=== PATIENT | male | born 1955 | race Caucasian/White ===

== ENCOUNTER 2023-08-18 16:46 | Inpatient (IN) | payer OTHER ==
[2023-08-18] VITALS (16 sets, daily range): BP systolic 102–126; BP diastolic 64–87
[~2023-08-18] VITALS: Ht 177.8 cm; Wt 100.8 kg
[~2023-08-18 16:46] MED LIST: ELIQUIS5 M2 PO; LOSA50 PO; OMEPRAZOLE MAGN20 MG PO; Simvastatin10 MG PO; Toprol Xl25 MG PO; VENL75ER PO; Zofran Odt4 MG SL
[2023-08-18] MEDS ORDERED: dilTIAZem HCL 125 MG in Dextrose 5% 100 ML IV SCH (17:20)
[2023-08-18] MEDS ORDERED: Diltiazem HCl 5 MG / ML 5ML Vial IV ONE (17:20)
[2023-08-18 17:51] LABS: BASOPHILS ABSOLUTE AUTO 0.06 K/mm3 (0.00-0.23); BASOPHILS PERCENT AUTO 1 % (0-2); EOSINOPHILS PERCENT AUTO 1 % (0-6); Hematocrit 34.3 % (37.0-53.0); Hemoglobin 10.8 g/dL (13.5-17.5); IMMATURE GRAN ABSOLUTE AUTO 0.04 K/mm3 (0.00-0.10); IMMATURE GRAN PERCENT AUTO 0 % (0-1); LYMPHOCYTES ABSOLUTE AUTO 1.27 K/mm3 (0.84-5.20); LYMPHOCYTES PERCENT AUTO 14 % (21-46); MONOCYTES ABSOLUTE AUTO 0.83 K/mm3 (0.16-1.47); MONOCYTES PERCENT AUTO 9 % (4-13); Mean Corpuscular HGB Conc 31.5 g/dL (31.5-36.5); Mean Corpuscular Volume 89 fL (80-100); Mean Platelet Volume 9.8 fL (9.1-12.4); NEUTROPHILS ABSOLUTE AUTO 6.68 K/mm3 (1.96-9.15); NEUTROPHILS PERCENT AUTO 75 % (41-73); Platelet Count 224 K/mm3 (150-400); RDW Coefficient Variation 14.4 % (11.7-14.2); RDW Standard Deviation 46.4 fL (35.1-46.3); Red Blood Cell Count 3.86 M/mm3 (4.30-5.90); White Blood Cell Count 8.98 K/mm3 (4.00-11.30)
[2023-08-18 18:17] LABS: Bun/Creatinine Ratio 10.3 (12.0-20.0); Calcium, Blood 8.6 mg/dL (8.5-10.1); Creatinine, Blood 1.26 mg/dL (0.60-1.20); Potassium, Blood 3.8 mmol/L (3.5-5.5)
[2023-08-18] MEDS ORDERED: Metoprolol Tartrate 25 MG Tab PO SCH (19:00)
[2023-08-18] MEDS ORDERED: Apixaban 5 MG Tab PO SCH (21:00)
[2023-08-18 21:27] LABS: U Amphetamine Screen Not Detected; U Barbituate Screen Not Detected; U Benzodiazapine Screen Not Detected; U Buprenorphine Screen Not Detected; U Cannabinoids Screen Not Detected; U Cocaine Screen Not Detected; U Methadone Screen Not Detected; U Methamphetamine Screen Not Detected; U Opiates Screen Not Detected; U Oxycodone Screen Not Detected; U Phencyclidine Screen Not Detected
[2023-08-18] MEDS ORDERED: Nicotine Polacrilex 2 MG Gum PO PRN (23:05)
[2023-08-18] MEDS ORDERED: Metoprolol Tartrate 1 MG/ML 5 ML VIAL IV PRN (23:05)
[2023-08-18] MEDS ORDERED: Temazepam 15 MG Cap PO ONE (23:10)
--- NOTE | 2023-08-18 23:17 | NUR ---
PT TRANSFER PT TRANSFERRED TO PCU VIA ER BED, PT TRANSITIONED TO PCU BED INDEPENDENTLY. PT ALERT AND ORIENTED X 4, ANSWERS QUESTIONS APPROPRIATELY, FOLLOWS DIRECTION WHEN PROMPTED AND IS ABLE TO MAKE NEEDS KNOWN. PT MOVES ALL EXTREMITIES EQUALLY BILATERALLY. PT AMBULATES IN THE ROOM WITH SBA TO MANAGE LINES. PT HR 80-130'S AFIB, HR INCREASES WITH EXERTION. PT TRANSFERRED TO PCU ON DILTIAZEM DRIP AT 2.5MG/HR, DC'D PER HOSPITALIST, TRANSOITIONED TO PO MEDICATION, SEE EMAR FOR MORE INFORMATION. MAP >65, SBP 100-120'S. PT ON RA, OXYGEN SATURATION >95%. ABDOMEN ROUND, NONTENDER, BOWEL TONES ACTIVE IN ALL FOUR QUADRANTS. PT AMBULATES TO BEDSDIE TOILET TO VOID. PIV IN PLACE TO RAC SL. BED IN LOWEST POSITION, CALL LIGHT WITHIN REACH, CARE CONTINUES.
[2023-08-19] VITALS (11 sets, daily range): BP systolic 101–131; BP diastolic 13–90
--- NOTE | 2023-08-19 07:34 | NUR ---
SHIFT SUMMARY PT RESTING IN BED, ALERT AND ORIENTED X4. PT ANSWERS QUESTIONS APPROPRIATELY, FOLLOWS DIRECTION WHEN PROMPTED AND IS ABLE TO MAKE HIS NEEDS KNOWN. PT MOVES AL LEXTREMITIES EQUALY BILATERALLY. HR 70-140'S AFIB, MAP >65. PT HR 70-90'S WHILE AT REST, HR INCREASES WITH EXERTION. PT DENIES CP OR PRESSURE. PT ON RA, OXYGEN SATURATION >95%. ABDOMEN SOFT, BOWEL TONES ACTIVE IN ALL FOUR QUADRANTS. PT USES URINAL TO VOID. PIV IN PLACE TO RAC SL. BED IN LOWEST POSITION, CALL LIGHT WITHIN REACH, CARE CONTINUES.
[2023-08-19] MEDS ORDERED: Thiamine HCl 100 MG Tab PO SCH (09:00)
[2023-08-19] MEDS ORDERED: Multivitamins 1 Tab PO SCH (09:00)
[2023-08-19] MEDS ORDERED: Folic Acid 1 MG TAB PO SCH (09:00)
[2023-08-19] MEDS ORDERED: Metoprolol Tartrate 50 MG Tab PO SCH ×3 (09:00→21:00)
[2023-08-19] MEDS ORDERED: Metoprolol Tartrate 50 MG Tab PO ONE (13:00)
[2023-08-19] MEDS ORDERED: Gabapentin 300 MG Cap PO SCH (15:00)
--- NOTE | 2023-08-19 16:55 | NUR ---
PT SUMMARY; PT REMAINED ALERT AND ORIENTED T/O SHIFT INDEPENDENT IN THE ROOM. PT HRR STILL TACHS UP TO 130-140'S, PT WAS GIVEN METOPROLOL IV PUSH THIS MORNING ALSO STARTED ON PO METOPROLOL TARTRATE STARTED AT 50 MG NOW UP TO 150MG BID. SBP 115-130'S, SATS ABOVE 95% ON RA, AFEBRILE. PT STILL C/O SOB WITH EXERTION. MD AWARE. ECHO WAS DONE TODAY RESULT WAS DISCUSSED BY MD. PT AMBULATED AROUND THE UNIT 3 TIMES WITH THE SAME COMPLAINT SOB. PT ALSO STARTED ON GABAPENTIN FOR POSSIBLE W/D SYMPTOMS. PT KEEPS DENYING HE WOULDNT GO INTO WITHDRAWALS AND HAVE NEVER BEEN. PT WAS EDUCATED ABOUT ETOH SYMPTOMS. PT EATING AND DRINKNG WITH NO ISSUES, NO OTHER ISSUES REPORTED FOR THE SHIFT, WILL REPORT TO ONCOMING SHIFT
[2023-08-19] MEDS ORDERED: Atorvastatin 10 MG Tab PO SCH (21:00)
[2023-08-20] VITALS (8 sets, daily range): BP systolic 93–126; BP diastolic 62–99
--- NOTE | 2023-08-20 00:25 | NUR ---
PT IS ALERT AND ORIENTED X 4, COOPERATIVE WITH CARE AND ABLE TO MAKE NEEDS KNOWN. HE IS ON RA AND MAINTAINING 02 SATURATION ABOVE 92%, HE DENIES SOB AT THIS TIME. HR AFIB 80'S-130'S. 150MG METOPROLOL GIVEN PER EMAR AT BEGINNING OF SHIFT, RATE HAS LOWERED TO 80'S-90'S SINCE THEN. 130'S AT BEGINNING OF SHIFT. PT DENIES CHEST PAIN/PRESSURE. PT AMBULATORY AND INDEPENDENT IN ROOM AND TOLERATES WELL. PT RESTING IN BED AND CALL LIGHT WITHIN REACH.
[2023-08-20 06:22] LABS: Bun/Creatinine Ratio 13.1 (12.0-20.0); Calcium, Blood 8.5 mg/dL (8.5-10.1); Creatinine, Blood 1.22 mg/dL (0.60-1.20); Potassium, Blood 3.9 mmol/L (3.5-5.5)
--- NOTE | 2023-08-20 06:54 | NUR ---
PT'S HR 70'S-90'S AT REST AND CAN GO UP TO 130'S W/EXERTION. PT C/O SOB & WEAKNESS WITH EXERTION. HE DENIES CHEST PAIN/PRESSURE. PT IN GOOD SPIRITS THIS MORNING. CALL LIGHT WITHIN REACH.
[2023-08-20] MEDS ORDERED: Omeprazole 20 MG CapCR PO SCH (09:00)
[2023-08-20] MEDS ORDERED: dilTIAZem HCL 30 MG TAB PO SCH (10:00)
--- NOTE | 2023-08-20 14:52 | NUR ---
LATE NOTE 1020 PT WENT FOR A WALK AROUND PCU WITH ASSISTANCE OF FIRE TENDER. PT HR TACHED UP TO 130-150'S WITH AMBULATION, PT ABLE TO GO ROUHGLY 100 FT BEFORE "FEELING SHORT OF BREATH." PT BACK TO ROOM AT ROUGHLY 1030. HR DOWN TO 80-90'S WHILE AT REST. PT STATED "I STILL FEEL LIKE I DID WHEN I CME IN."
--- NOTE | 2023-08-20 16:07 | NUR ---
PT AMBULATED TO HALLWAY. CINTHIA CHOU ACCOMPANIED PT FOR A WALK AROUND PCU. PT HR AVERAGED 110-120'S FOR PT'S TRIP AROUND PCU. PT AMBULATED FOR ROUGHLY 300 FT. PT BACK TO ROOM AND REPORTED SLIGHT SOB, "NOT BAD." PT HR TOUCHED 130'S WHILE GETTING BACK INTO BED.
[2023-08-20] MEDS ORDERED: dilTIAZem HCL 60 MG TAB PO SCH ×4 (16:30→21:00)
--- NOTE | 2023-08-20 18:26 | NUR ---
THIS RN TO PT ROOM TO GIVE EVENING MEDS AT ROUGHLY 1750. PT HR NOTED TO BE IN THE 60'S AND PT HAD RECIEVED AN INCREASED DOSE OF DILTIAZEM AT 1616. THIS RN TOOK PT'S BP AT 1758, BP 93/70. RESIDENT MD NOTIFIED THAT HR HAS DECREASED TO THE 60'S AND BP ALSO SOFT IN THE 90'S AFTER RECIEVING DOSE. RESIDENT NOTIFIED THAT PT BP PRIOR TPO RECIEVING INCREASED DOSE WAS 105/75 WITH THE HR AT 84. VS PARAMETERS GOOD TO GIVE MEDICATIONS PER ORDER. PT REPORTED NO SYMPTOMS AT THIS TIME. RESIDENT TO CHANGE ORDER OF CARDIZEM. MOMENTS LATER, ABOUT 5 MINUTES, THIS RN OBSERVED PT'S HR IN THE HIGH 50'S AND BRIEFLY TOUCHED 39. THIS RN TO PT'S TO ASSESS. PT REPORTED "I FEEL KIND OF FUNNY. MY HANDS ALL OF A SUDDEN GOT COLD." THIS RN CONNECTED PT TO AUTOMATIC BP CYCLES Q15 AND INFORMED PT TO CONTACT STAFF IF HE HAS ANY NEW OR WORSENING SYMPTOMS. PT INSTRUCTED NOT TO GET UP WITHOUT ASSISTANCE. DR GIBSON NOTIFIED OF ACUTE CHANGE AND PREVIOUS EVENT. NOTIFED THAT PT SYMPTOMATIC AT THIS TIME. THIS RN INSTRUCTED TO HOLD BETA BLOCKERS AND STICK WITH THE NEW DOSE OF CARDIZEM THAT THE RESIDENTS HAVE ORDERED. WELL SURVEYING ENGINEER NOTIFIED.
--- NOTE | 2023-08-20 18:55 | NUR ---
SHIFT SUMMARY PT A/OX4 AND COOPERATIVE OF CARE. PT ABLE TO EXPRESS NEEDS. PT RESTLESS IN ROOM AND WOULD WANDER OUT TO HALLWAY, MULTIPLE WALKS AROUND UNIT WITH STAFF. PT HR TACHED UP TO 110-130'S DURING AMBULATION AND PT REPORTED SOB. NEW ORDERS FOR MEDS, PT HR DOWN TO 50'S, SEE THIS RN PREVIOUS NOTES. SATS STABLE IN THE 90'S ON RA. NO RPEORT OF CHEST PAIN/PRESSURE THROUGHOUT SHIFT. PT HAS HAD TO VERY BRIEF MOMENTS OF HR TOUCHING 39 AND 40'S AFTER HR CAME DOWN TO 50'S. PT INSTRUCTED TO CONTACT STAFF RIGHT AWAY IF HE HAS ANY DIFFERENT SYMPTOMS OR SYMPTOMS WORSEN. PT ALS0 INSTRUCTED NOT TO GET UP ON HIS OWN, PT VERBALIZED UNDERSTANDING.
[2023-08-20] MEDS ORDERED: LORazepam 2 MG/ML 1ML Injection IV PRN ×2 (20:00→20:05)
[2023-08-20] MEDS ORDERED: ChlordiazePOXIDE 25 MG Cap PO PRN ×2 (20:00)
[2023-08-20] MEDS ORDERED: Metoprolol Tartrate 50 MG Tab PO SCH ×2 (21:00)
--- NOTE | 2023-08-20 21:29 | NUR ---
1999- PROVIDER SARABJIT CALLED AND INFORMED OF PT'S CHEST PAIN EPISODE. PT ALERT THIS RN OF CHEST PAIN THAT WAS SHARP AND SUBSTERNAL. PT REPORTS PAIN LASTED A MINUTE. PROVIDER ORDERED LABS AND TROPOINS. PROVIDER INFORMED OF PT'S ALCOHOL USE HISTORY AND ORDERED CIWA PROTOCOL MEDS. PT HAS HAD 0 CIWAS.
[2023-08-20] MEDS ORDERED: Melatonin 5 MG Tablet PO SCH (22:00)
[2023-08-21 00:17] VITALS: BP 91/68
[2023-08-21 05:57] VITALS: BP 117/80
--- NOTE | 2023-08-21 06:37 | NUR ---
SUMMARY- PT HAD A SHORT EPISODE OF CX PAIN. PROVIDER CALLED AND TROPS ORDERED. TROPS RESULTS WERE UNREMARKABLE. CIWA PROTOCOL WAS ORDERED. CIWAS HAVE BEEN NEGATIVE. PT HRT RATE THROUGHTHE NIGHT WAS IN 69-72. BP'S WERE IN 90'S SP MOST OF NIGHT. PM CARDIZEM WAS HELD. THIS AM HRT RATES IN 80'S AND SBP IN 100'S. PT REPORTS SLEEPING AND DENIES CX PAIN DURING THE NIGHT. PT VOIDED VIA URINAL. PT CURRENTLY AWAKE AND COMFORTABLE. CALL LIGHT IN REACH.
[2023-08-21 06:58] LABS: Bun/Creatinine Ratio 18.7 (12.0-20.0); Calcium, Blood 8.8 mg/dL (8.5-10.1); Creatinine, Blood 1.23 mg/dL (0.60-1.20); Potassium, Blood 4.1 mmol/L (3.5-5.5)
[2023-08-21 07:06] VITALS: BP 120/72
[2023-08-21 07:33] VITALS: BP 113/73
[2023-08-21] MEDS ORDERED: dilTIAZem HCL 30 MG TAB PO ONE (09:00)
--- NOTE | 2023-08-21 10:44 | NUR ---
PT AMBULATED AROUND PCU, ROUGHLY 500 FT. PT HR UP TO 130 AT ABOUT 250 FT TIMUR. PT DENIED SOB AT THIS TIME. HR FLUCTUATED BETWEEN 110-130'S FOR REMAINDER OF WALK, NO REPORT OF SOB. PT RETURNED TO ROOM AND HR QUICKLY DOWN TO 90'S WHIL PT STANDING AT EDGE OF BED.
[2023-08-21 11:16] VITALS: BP 107/61
[2023-08-21] MEDS ORDERED: dilTIAZem HCL 60 MG TAB PO SCH (11:30)
[2023-08-21 12:21] VITALS: BP 109/60
[2023-08-21] MEDS ORDERED: B-1100 MG PO (14:03)
[2023-08-21] MEDS ORDERED: ALBU90OI INH (14:04)
[2023-08-21] MEDS ORDERED: DILT60 PO (14:07)
[2023-08-21] MEDS ORDERED: DILT30 PO (14:08)
== END 2023-08-21 15:15 | disposition home or self-care (01) | DRG 309 ==
LOC: ER 16:46 → PCU 16:50 → ERHOLD 16:50 → PCU 22:13
PROVIDERS: Emergency Medicine; Nurse Practitioner Acute Care; Student in an Organized Health Care Education/Training Program; ADMIT Internal Medicine
DX: I48.91 Unspecified atrial fibrillation (principal); N17.9 Acute kidney failure, unspecified; I10 Essential (primary) hypertension; G47.33 Obstructive sleep apnea (adult) (pediatric); F17.220 Nicotine dependence, chewing tobacco, uncomplicated; Z71.6 Tobacco abuse counseling; E78.5 Hyperlipidemia, unspecified; K21.9 Gastro-esophageal reflux disease without esophagitis; D63.8 Anemia in other chronic diseases classified elsewhere; F10.20 Alcohol dependence, uncomplicated; F32.A Depression, unspecified; Z98.890 Other specified postprocedural states
CPT/HCPCS: 36415; 80048; 83735; 84484; 85025; 93005; 93010; 96365; 96366; 96375; 96376; 99285-25; A9270; C8929; G0378; Q9957

== ENCOUNTER 2024-05-19 09:20 | Emergency (ER) | payer OTHER ==
[~2024-05-19] VITALS: Ht 177.8 cm; Wt 102.1 kg
[~2024-05-19 09:20] MED LIST changes: +ALBU90OI INH; +B-1100 MG PO; +DILT30 PO; +DILT60 PO
[2024-05-19] MEDS ORDERED: B-1100 M1 PO (09:39)
[2024-05-19] MEDS ORDERED: NS 1,000 ML IV SCH (09:40)
[2024-05-19] MEDS ORDERED: Diltiazem HCl 5 MG / ML 5ML Vial IV ONE (09:40)
[2024-05-19] MEDS ORDERED: DILT180 PO (09:40)
[2024-05-19 09:58] LABS: BASOPHILS ABSOLUTE AUTO 0.08 K/mm3 (0.00-0.23); BASOPHILS PERCENT AUTO 1 % (0-2); EOSINOPHILS ABSOLUTE AUTO 0.12 K/mm3 (0.00-0.68); EOSINOPHILS PERCENT AUTO 1 % (0-6); Hematocrit 38.6 % (37.0-53.0); Hemoglobin 11.9 g/dL (13.5-17.5); IMMATURE GRAN ABSOLUTE AUTO 0.05 K/mm3 (0.00-0.10); IMMATURE GRAN PERCENT AUTO 1 % (0-1); LYMPHOCYTES ABSOLUTE AUTO 1.65 K/mm3 (0.84-5.20); LYMPHOCYTES PERCENT AUTO 16 % (21-46); MONOCYTES ABSOLUTE AUTO 1.01 K/mm3 (0.16-1.47); MONOCYTES PERCENT AUTO 10 % (4-13); Mean Corpuscular HGB 24.9 pg (26.0-34.0); Mean Corpuscular HGB Conc 30.8 g/dL (31.5-36.5); Mean Corpuscular Volume 81 fL (80-100); Mean Platelet Volume 9.9 fL (9.1-12.4); NEUTROPHILS ABSOLUTE AUTO 7.64 K/mm3 (1.96-9.15); NEUTROPHILS PERCENT AUTO 72 % (41-73); Platelet Count 269 K/mm3 (150-400); RDW Coefficient Variation 15.9 % (11.7-14.2); RDW Standard Deviation 47.2 fL (35.1-46.3); Red Blood Cell Count 4.77 M/mm3 (4.30-5.90); White Blood Cell Count 10.55 K/mm3 (4.00-11.30)
[2024-05-19 11:17] LABS: Albumin, Blood 3.6 g/dL (3.4-5.0); Bilirubin, Total 0.5 mg/dL (0.1-1.0); Creatinine, Blood 1.31 mg/dL (0.60-1.20); Globulin, Blood 3.7 g/dL (2.2-4.0); Total Protein, Blood 7.3 g/dL (6.4-8.2)
[2024-05-19 12:00] VITALS: BP 107/79
[2024-05-19] MEDS ORDERED: DILTIAZEM HCL90 MG PO (12:09)
== END 2024-05-19 12:28 | disposition home or self-care (01) ==
LOC: ER 09:20
PROVIDERS: Emergency Medicine
DX: I48.91 Unspecified atrial fibrillation (principal); I10 Essential (primary) hypertension; K21.9 Gastro-esophageal reflux disease without esophagitis; E78.5 Hyperlipidemia, unspecified; Z79.01 Long term (current) use of anticoagulants; Z79.899 Other long term (current) drug therapy
CPT/HCPCS: 71045; 80053; 84484; 85025; 93005; 93010; 96374; 99285-25; J7030

== ENCOUNTER 2024-05-20 09:34 | Emergency (ER) | payer OTHER ==
[~2024-05-20] VITALS: Ht 177.8 cm; Wt 102.1 kg
[~2024-05-20 09:34] MED LIST changes: +B-1100 M1 PO; +DILT180 PO; +DILTIAZEM HCL90 MG PO
[2024-05-20] MEDS ORDERED: Diltiazem HCl 5 MG / ML 5ML Vial IV ONE (10:20)
[2024-05-20 10:31] LABS: BASOPHILS ABSOLUTE AUTO 0.07 K/mm3 (0.00-0.23); BASOPHILS PERCENT AUTO 1 % (0-2); EOSINOPHILS ABSOLUTE AUTO 0.15 K/mm3 (0.00-0.68); EOSINOPHILS PERCENT AUTO 2 % (0-6); Hematocrit 35.4 % (37.0-53.0); Hemoglobin 10.7 g/dL (13.5-17.5); IMMATURE GRAN ABSOLUTE AUTO 0.04 K/mm3 (0.00-0.10); IMMATURE GRAN PERCENT AUTO 0 % (0-1); LYMPHOCYTES PERCENT AUTO 14 % (21-46); MONOCYTES PERCENT AUTO 8 % (4-13); Mean Corpuscular HGB 24.4 pg (26.0-34.0); Mean Corpuscular HGB Conc 30.2 g/dL (31.5-36.5); Mean Corpuscular Volume 81 fL (80-100); Mean Platelet Volume 9.7 fL (9.1-12.4); NEUTROPHILS ABSOLUTE AUTO 7.17 K/mm3 (1.96-9.15); NEUTROPHILS PERCENT AUTO 75 % (41-73); Platelet Count 259 K/mm3 (150-400); RDW Coefficient Variation 16.2 % (11.7-14.2); RDW Standard Deviation 47.9 fL (35.1-46.3); Red Blood Cell Count 4.38 M/mm3 (4.30-5.90); White Blood Cell Count 9.53 K/mm3 (4.00-11.30)
[2024-05-20 10:59] LABS: Calcium, Blood 8.6 mg/dL (8.5-10.1); Creatinine, Blood 1.17 mg/dL (0.60-1.20); Free Thyroxine 1.04 ng/dL (0.70-1.60); Magnesium, Blood 2.1 mg/dL (1.6-2.4); Potassium, Blood 4.1 mmol/L (3.5-5.5); Thyroid Stimulating Hormone 1.84 uIU/mL (0.360-4.800)
[2024-05-20 11:27] VITALS: BP 122/74
== END 2024-05-20 12:30 | disposition left against medical advice (07) ==
LOC: ER 09:34
PROVIDERS: Emergency Medicine; Physician Assistant
DX: I48.91 Unspecified atrial fibrillation (principal); I10 Essential (primary) hypertension; E78.5 Hyperlipidemia, unspecified; Z53.29 Procedure and treatment not carried out because of patient's decision for other reasons; Z79.899 Other long term (current) drug therapy; Z79.01 Long term (current) use of anticoagulants
CPT/HCPCS: 80048; 83735; 84439; 84443; 85025; 93005; 93010; 96374; 99285-25